=== PATIENT | female | born 1990 | race Caucasian/White ===

== ENCOUNTER 2024-06-11 17:56 | Inpatient (IN) | payer BC ==
[~2024-06-11 17:56] MED LIST: Bupivacaine 0.25% HCL 30 ML VIAL ONE; Lidocaine 2% MPF 10 ML AMP (For Epidural Use) ONE; ePHEDrine Sulfate 50 MG/10 ML VIAL ONE
[2024-06-11] MEDS ORDERED: Ibuprofen 800 MG TAB PO PRN (18:54)
[2024-06-11] MEDS ORDERED: Promethazine HCl 25 MG/ML VIAL IM PRN (18:54)
[2024-06-11] MEDS ORDERED: Lidocaine 1% (PF) 30 ML VIAL SC PRN (18:54)
[2024-06-11] MEDS ORDERED: HYDROcodone/Acetaminophen 5/325 mg Tablet PO PRN ×2 (18:54)
[2024-06-11] MEDS ORDERED: Tranexamic Acid 1,000 MG/10 ML VIAL IVP PRN (18:54)
[2024-06-11] MEDS ORDERED: Oxytocin 30 units/NS 500 ML 500 ML IV SCH (18:54)
[2024-06-11] MEDS ORDERED: hydrALAZINE 20 MG/ML VIAL SLOW IVP PRN (18:54)
[2024-06-11] MEDS ORDERED: Acetaminophen 500 MG TAB PO PRN (18:54)
[2024-06-11] MEDS ORDERED: Carboprost 250 MCG/ML AMP IM PRN (18:54)
[2024-06-11] MEDS ORDERED: Misoprostol 200 MCG TAB PR PRN (18:54)
[2024-06-11] MEDS ORDERED: Ondansetron PF 4 MG/2 ML Vial IVP PRN (18:54)
[2024-06-11] MEDS ORDERED: Diphenoxylate HCl/Atropine Tablet PO PRN ×2 (18:54)
[2024-06-11 18:56] VITALS: BMI 44.9
[2024-06-11 19:10] LABS: Hematocrit 36.3 % (34.9-44.5); Hemoglobin 12.2 g/dL (12.0-15.5); Mean Corpuscular HGB CONC 33.6 g/dL (32.0-36.0); Mean Corpuscular Hemoglobin 30.8 pg (27.0-33.0); Mean Corpuscular Volume 91.7 fL (81.6-98.3); Mean Platelet Volume 9.8 fL (7.4-10.4); Platelet Count 397 10x3/uL (150-450); RBC Distribution Width 14.4 % (11.5-14.5); Red Blood Cell (RBC) Count 3.96 10x6/uL (3.90-5.03); White Blood Cell (WBC) Count 15.8 10x3/uL (3.5-10.5)
[2024-06-11 19:23] LABS: ALT (SGPT) 16 U/L (8-55); AST (SGOT) 17 U/L (5-34); Albumin 2.4 g/dL (3.5-5.0); Alkaline Phosphatase 157 U/L (40-110); Anion Gap 14 mmol/L (10-20); BUN (Urea Nitrogen) 9 mg/dL (7.0-18.7); Bilirubin, Total 0.2 mg/dL (0.2-1.2); Calc. Creatinine Clearance 219 mL/min (70-130); Calcium 9.4 mg/dL (7.8-10.44); Carbon Dioxide 19 mmol/L (22-29); Chloride 107 mmol/L (98-107); Estimated GFR 119; Globulin 3.6 g/dL (2.4-3.5); Glucose 117 mg/dL (70-105); Potassium 4.1 mmol/L (3.5-5.1); Sodium 136 mmol/L (136-145)
[2024-06-11 22:09] LABS: Syphilis Antibody Nonreactive (Nonreactive); Syphilis Antibody Index 0.06 S/CO (<1.00 Non-Reactive)
[2024-06-11] MEDS: Misoprostol 100 MCG TAB VAG SCH (22:22)
[2024-06-11 22:32] LABS: HBsAg Index 0.18 S/CO (0-0.99); Hep B Surf Ag - L&D Non-Reactive S/CO (NonReactive)
[2024-06-11] MEDS: Zolpidem Tartrate 5 MG TAB PO PRN (23:01)
[2024-06-12] MEDS: fentaNYL 50 mcg/mL 1 mL Vial SLOW IVP PRN (04:31)
[2024-06-12] MEDS: Lactated Ringer's 1,000 ML IV SCH (06:03)
[2024-06-12] MEDS: Oxytocin 30 units/NS 500 ML 500 ML IV SCH (06:05)
[2024-06-12] MEDS: fentaNYL/Ropivacaine Epidural 100 ML ONE (08:28)
[2024-06-12] MEDS ORDERED: Lactated Ringer's 500 ML IV PRN (09:11)
[2024-06-12] MEDS ORDERED: ePHEDrine Sulfate 50 MG/10 ML VIAL SLOW IVP PRN (09:11)
[2024-06-12] MEDS ORDERED: Acetaminophen 325 MG TAB PO PRN ×2 (09:11→12:04)
[2024-06-12] MEDS ORDERED: Ondansetron PF 4 MG/2 ML Vial IVP PRN ×3 (09:11→13:01)
[2024-06-12] MEDS ORDERED: Naloxone HCl 0.4 mg/ml Vial IVP PRN ×4 (09:11→13:01)
[2024-06-12] MEDS ORDERED: Promethazine HCl 25 MG/ML VIAL IM PRN ×2 (09:11→13:01)
[2024-06-12] MEDS ORDERED: diphenhydrAMINE 50 MG/ML VIAL IVP PRN ×2 (09:11→13:01)
[2024-06-12] MEDS ORDERED: Moisturizing Cream (Eucerin) 113 GM JAR TOP PRN ×2 (09:11→13:01)
[2024-06-12] MEDS ORDERED: fentaNYL 2 mcg/Ropivacaine 0.2% Epidural 100 ML CADD EPIDURAL SCH (09:15)
[2024-06-12] MEDS ORDERED: Communication Order-Pharmacy FS SCH ×2 (09:15→13:15)
[2024-06-12] MEDS ORDERED: diphenhydrAMINE 25 MG CAP PO PRN (12:04)
[2024-06-12] MEDS ORDERED: Lanolin Ointment 7 GM TUBE TOP PRN (12:04)
[2024-06-12] MEDS ORDERED: Bisacodyl 10 MG SUPP PR PRN (12:04)
[2024-06-12] MEDS ORDERED: hydrALAZINE 20 MG/ML VIAL SLOW IVP PRN (12:04)
[2024-06-12] MEDS ORDERED: Simethicone Chewable 80 MG TAB PO PRN (12:04)
[2024-06-12] MEDS ORDERED: fentaNYL 50 mcg/mL 1 mL Vial SLOW IVP PRN (13:01)
[2024-06-12] MEDS ORDERED: HYDROmorphone 0.5 MG/0.5 ML SYRINGE SLOW IVP PRN (13:01)
[2024-06-12] MEDS ORDERED: Naloxone HCl 0.4 mg/ml Vial IV PRN (13:01)
[2024-06-12] MEDS ORDERED: Meperidine HCl/PF 25 MG (1 mL) VIAL SLOW IVP PRN (13:01)
[2024-06-12] MEDS: Ketorolac Tromethamine 30 MG (1 mL) VIAL IVP SCH (13:47)
[2024-06-12] MEDS: Boostrix 0.5 ML (Tdap) VIAL (>/=7 yrs of age) IM ONE (16:24)
[2024-06-12] MEDS: CEFAZOLIN 2 GM VIAL ONE (16:24)
[2024-06-12] MEDS: Morphine PF 10 MG/10 ML VIAL ONE (16:24)
[2024-06-12] MEDS: Ondansetron PF 4 MG/2 ML Vial ONE (16:24)
[2024-06-12] MEDS: Oxytocin 10 UNITS/ML VIAL ONE (16:24)
[2024-06-12] MEDS: Azithromycin 500 MG VIAL ONE (16:24)
[2024-06-12] MEDS: PHENYLEPHRINE-NS 100 MCG/ML 10 ML SYRINGE ONE (16:24)
[2024-06-12] MEDS: diphenhydrAMINE 50 MG/ML VIAL ONE (16:25)
[2024-06-12] MEDS: Famotidine/PF 20 mg/2ml Vial ONE (16:25)
[2024-06-12] MEDS: Ibuprofen 800 MG TAB PO SCH (16:25)
[2024-06-12] MEDS: Ketorolac Tromethamine 30 MG (1 mL) VIAL IVP PRN (19:55)
[2024-06-12] MEDS: Docusate 100 MG CAP PO SCH (19:55)
[2024-06-13] MEDS: Ferrous Sulfate 325 MG TAB PO SCH (02:18)
[2024-06-13 04:21] LABS: Hematocrit 25.5 % (34.9-44.5); Hemoglobin 8.3 g/dL (12.0-15.5); Mean Corpuscular HGB CONC 32.5 g/dL (32.0-36.0); Mean Corpuscular Hemoglobin 30.3 pg (27.0-33.0); Mean Corpuscular Volume 93.1 fL (81.6-98.3); Mean Platelet Volume 9.4 fL (7.4-10.4); Platelet Count 285 10x3/uL (150-450); RBC Distribution Width 14.7 % (11.5-14.5); Red Blood Cell (RBC) Count 2.74 10x6/uL (3.90-5.03); White Blood Cell (WBC) Count 14.3 10x3/uL (3.5-10.5)
[2024-06-13] MEDS: Prenatal Vitamin 1 TAB PO SCH (07:28)
[2024-06-13] MEDS: HYDROcodone/Acetaminophen 5/325 mg Tablet PO PRN ×2 (08:20→12:33)
[2024-06-13] MEDS: Ibuprofen 800 MG TAB PO SCH (21:47)
[2024-06-14 07:59] VITALS: BP 122/66; TEMP 98
== END 2024-06-14 12:20 | disposition home or self-care (01) | DRG 788 ==
LOC: CSHLD 17:56 → CSHPP 06-12 15:08
PROVIDERS: ADMIT Obstetrics & Gynecology; ATTEND Obstetrics & Gynecology
PROC: 10D00Z1 Extraction of Products of Conception, Low, Open Approach (ICD-10-PCS; principal; 2024-06-12)
PROC: 3E0DXGC Introduction of Other Therapeutic Substance into Mouth and Pharynx, External Approach (ICD-10-PCS; 2024-06-12)
PROC: 3E033VJ Introduction of Other Hormone into Peripheral Vein, Percutaneous Approach (ICD-10-PCS; 2024-06-12)
PROC: 3E0S3BZ Introduction of Anesthetic Agent into Epidural Space, Percutaneous Approach (ICD-10-PCS; 2024-06-12)
PROC: 10907ZC Drainage of Amniotic Fluid, Therapeutic from Products of Conception, Via Natural or Artificial Opening (ICD-10-PCS; 2024-06-12)
DX: O13.4 Gestational [pregnancy-induced] hypertension without significant proteinuria, complicating childbirth (principal); Z3A.38 38 weeks gestation of pregnancy; Z37.0 Single live birth; O76 Abnormality in fetal heart rate and rhythm complicating labor and delivery
CPT/HCPCS: 36415; 51702; 80053; 82570; 84156; 85027; 86780; 86850; 86900; 86901; 87340; J0665; J1200; J1885; J2274; J2405; J2590; J3010; J3490; J7120

== ENCOUNTER 2024-06-21 19:01 | Emergency (ER) | payer BC ==
[~2024-06-21 19:01] MED LIST changes: -Bupivacaine 0.25% HCL 30 ML VIAL ONE; +Iopamidol 300 61% 100 ML VIAL FS ONE; -Lidocaine 2% MPF 10 ML AMP (For Epidural Use) ONE; -ePHEDrine Sulfate 50 MG/10 ML VIAL ONE
[2024-06-21] MEDS ORDERED: Ondansetron PF 4 MG/2 ML Vial ONE (19:41)
[2024-06-21] MEDS ORDERED: Acetaminophen 325 MG TAB ONE (19:41)
[2024-06-21 20:40] LABS: #Basophils 0.02 10x3/uL (0.0-0.2); #Eosinophils 0.02 10x3/uL (0.0-0.5); #Monocytes 0.58 10x3/uL (0.0-1.1); #Neutrophils 9.42 10x3/uL (1.5-8.4); %Basophils 0.2 % (0.0-2.0); %Eosinophils 0.2 % (0.0-6.0); %Lymphocytes 11.1 % (18.0-47.0); %Monocytes 5.1 % (0.0-10.0); %Neutrophils 82.6 % (40.0-75.0); Hematocrit 32.7 % (34.9-44.5); Hemoglobin 10.8 g/dL (12.0-15.5); Mean Corpuscular Hemoglobin 30.3 pg (27.0-33.0); Mean Corpuscular Volume 91.9 fL (81.6-98.3); Mean Platelet Volume 8.5 fL (7.4-10.4); Platelet Count 535 10x3/uL (150-450); RBC Distribution Width 14.7 % (11.5-14.5); Red Blood Cell (RBC) Count 3.56 10x6/uL (3.90-5.03); White Blood Cell (WBC) Count 11.4 10x3/uL (3.5-10.5)
[2024-06-21 20:43] LABS: PTT 28.3 sec (22.0-33.0); Prothrombin Time 10.8 sec (9.5-12.1)
[2024-06-21 20:43] LABS: Bilirubin Neg (Negative); Blood, Urine 250 (Negative); Glucose, Urine (Dipstick) Normal (Negative); Ketone, Urine Negative (Negative); Leukocyte 100 (Negative); Nitrite Negative (Negative); Protein, Urine (Dipstick) 15 mg/dl (Neg-Trace); Specific Gravity, Urine 1.005 (1.005-1.030); Urobilinogen Normal mg/dL (Less than 2); pH, Urine 6.5 (5.0-9.0)
[2024-06-21 20:44] LABS: ALT (SGPT) 22 U/L (8-55); AST (SGOT) 21 U/L (5-34); Albumin 2.7 g/dL (3.5-5.0); Alkaline Phosphatase 121 U/L (40-110); Anion Gap 14 mmol/L (10-20); BUN (Urea Nitrogen) 14 mg/dL (7.0-18.7); Bilirubin, Total 0.2 mg/dL (0.2-1.2); Calc. Creatinine Clearance 0 mL/min (70-130); Calcium 9.2 mg/dL (7.8-10.44); Carbon Dioxide 21 mmol/L (22-29); Chloride 106 mmol/L (98-107); Estimated GFR 103; Globulin 4.3 g/dL (2.4-3.5); Glucose 93 mg/dL (70-105); Sodium 137 mmol/L (136-145)
[2024-06-21 20:47] LABS: Clarity Hazy (Clear)
[2024-06-21 20:58] LABS: CAUTI Indications for Culture Pregnancy; Squamous Epithelial 0-3 HPF (0-3); WBC/HPF 0-3 HPF (0-3)
[2024-06-21 20:59] LABS: Bacteria/HPF Rare-Few HPF (None Seen)
[2024-06-21 21:04] LABS: Urine Culture Reflex Yes Yes
== END 2024-06-21 22:28 | disposition home or self-care (01) ==
LOC: CSHERS 19:01
DX: O86.4 Pyrexia of unknown origin following delivery (principal); R52 Pain, unspecified; I10 Essential (primary) hypertension
CPT/HCPCS: 71045; 74177; 80053; 81001; 84145; 85025; 85610; 85730; 87086; 87428; 93005; 96374; J2405; Q9967

== ENCOUNTER 2024-06-28 13:21 | Emergency (ER) | payer BC ==
[2024-06-28 14:39] LABS: #Basophils 0.05 10x3/uL (0.0-0.2); #Monocytes 0.47 10x3/uL (0.0-1.1); #Neutrophils 6.12 10x3/uL (1.5-8.4); %Basophils 0.6 % (0.0-2.0); %Eosinophils 2.4 % (0.0-6.0); %Lymphocytes 18.8 % (18.0-47.0); %Monocytes 5.6 % (0.0-10.0); %Neutrophils 72.4 % (40.0-75.0); Hematocrit 37.4 % (34.9-44.5); Mean Corpuscular HGB CONC 32.1 g/dL (32.0-36.0); Mean Corpuscular Hemoglobin 29.6 pg (27.0-33.0); Mean Corpuscular Volume 92.3 fL (81.6-98.3); Mean Platelet Volume 8.4 fL (7.4-10.4); Platelet Count 615 10x3/uL (150-450); RBC Distribution Width 14.4 % (11.5-14.5); Red Blood Cell (RBC) Count 4.05 10x6/uL (3.90-5.03); White Blood Cell (WBC) Count 8.5 10x3/uL (3.5-10.5)
[2024-06-28 14:53] LABS: ALT (SGPT) 24 U/L (8-55); AST (SGOT) 27 U/L (5-34); Albumin 3.1 g/dL (3.5-5.0); Alkaline Phosphatase 128 U/L (40-110); Anion Gap 15 mmol/L (10-20); BUN (Urea Nitrogen) 11 mg/dL (7.0-18.7); Bilirubin, Total 0.2 mg/dL (0.2-1.2); Calc. Creatinine Clearance 0 mL/min (70-130); Calcium 9.4 mg/dL (7.8-10.44); Carbon Dioxide 22 mmol/L (22-29); Chloride 108 mmol/L (98-107); Estimated GFR 105; Globulin 4.1 g/dL (2.4-3.5); Glucose 98 mg/dL (70-105); Potassium 4.1 mmol/L (3.5-5.1); Protein, Total 7.2 g/dL (6.0-8.3); Sodium 141 mmol/L (136-145)
== END 2024-06-28 15:24 | disposition home or self-care (01) ==
LOC: CSHERS 13:21
DX: O86.01 Infection of obstetric surgical wound, superficial incisional site (principal); I10 Essential (primary) hypertension
CPT/HCPCS: 74177; 80053; 85025